=== PATIENT | female | born 1995 | race Caucasian/White ===

== ENCOUNTER 2018-02-26 09:22 | Emergency (ER) | payer BC ==
[~2018-02-26] VITALS: Ht 165.1 cm; Wt 86.2 kg
[2018-02-26] MEDS ORDERED: MORPHINE SULFATE 4 MG/1 ML DISP.SYRIN ONE (09:55)
[2018-02-26] MEDS: MORPHINE SULFATE 4 MG/1 ML DISP.SYRIN IM ONE (09:56)
[2018-02-26] MEDS ORDERED: IBUPROFEN 600 MG TABLET ONE (10:13)
[2018-02-26] MEDS: IBUPROFEN 600 MG TABLET PO ONE (10:14)
--- NOTE | 2018-02-26 10:14 | NUR ---
2nd xray done by tech for post-reduction.
[2018-02-26 10:48] VITALS: BP 132/66
--- NOTE | 2018-02-26 10:49 | NUR ---
Patient discharged to home in stable conditon. Written and verbal after care instructions given. Patient verbalizes understanding of instructions.
== END 2018-02-26 10:49 | disposition home or self-care (01) ==
LOC: ER 09:25
DX: S43.084A Other dislocation of right shoulder joint, initial encounter (principal); W18.39XA Other fall on same level, initial encounter; Y93.89 Activity, other specified; Y99.8 Other external cause status; Y92.39 Other specified sports and athletic area as the place of occurrence of the external cause
CPT/HCPCS: 23650; 73030; 73060; 99283; J2270; A4663